=== PATIENT | male | born 1945 | race Caucasian/White ===

== ENCOUNTER 2022-01-01 06:56 | Emergency (ER) | payer MEDICARE, BC ==
[~2022-01-01] VITALS: Ht 182.9 cm; Wt 102.5 kg
--- NOTE | 2022-01-01 07:10 | NUR ---
Patient BIB [id number]. Per report, patient had a syncopial episode and hit his head. Patient c/o nausea without vomiting. Patient is A/Ox4, no SOB, not in distress.
[2022-01-01] MEDS ORDERED: IV NORMAL SALINE 500 ML BAG IV ONE (07:30)
--- NOTE | 2022-01-01 07:30 | NUR ---
Received pt in room 4A, pt is A/Ox4 and states he had a syncopal episode in the waiting room while waiting for a procedure for his kidney stone. Pt states he feels much better now and is pain free at this time.
--- NOTE | 2022-01-01 07:35 | NUR ---
Pt to CT via [facility] alexander noted.
[2022-01-01 08:03] LABS: HEMATOCRIT 38.3 % (36.7-47.1); MEAN CORPUSCULAR VOLUME 87.7 fL (73.0-96.2); PLATELET COUNT (AUTO) 264 K/uL (152-348)
[2022-01-01 08:22] LABS: CARBON DIOXIDE 26 mmol/L (21-32); CHLORIDE 101 mmol/L (98-107); CREATININE 1.8 mg/dL (0.6-1.3); GLUCOSE 164 mg/dL (74-106); POTASSIUM 4.8 mmol/L (3.5-5.1); UREA NITROGEN, BLOOD 25 mg/dL (7-18)
[2022-01-01 08:30] LABS: ALANINE AMINOTRANSFERASE 35 U/L (16-63); ALKALINE PHOSPHATASE 57 U/L (50-136); ASPARTATE AMINOTRANSFERASE 21 U/L (15-37); BILIRUBIN,DIRECT 0.2 mg/dL (0.0-0.2); BILIRUBIN,TOTAL 0.4 mg/dL (0.2-1.0); TOTAL PROTEIN, SERUM 7.3 g/dL (6.4-8.2)
--- NOTE | 2022-01-01 11:20 | NUR ---
Removed IV intact, site okay, bandaged. Gave pt d/c instructions, pt verbalized understanding.
--- NOTE | 2022-01-01 11:23 | NUR ---
Gave pt d/c instructions, pt verbalized understanding.
== END 2022-01-01 11:30 | disposition home or self-care (01) ==
LOC: ER 07:23
DX: R55 Syncope and collapse (principal); R11.0 Nausea; R94.31 Abnormal electrocardiogram [ECG] [EKG]; R79.89 Other specified abnormal findings of blood chemistry; Z86.73 Personal history of transient ischemic attack (TIA), and cerebral infarction without residual deficits; E11.9 Type 2 diabetes mellitus without complications; I25.2 Old myocardial infarction; Z95.5 Presence of coronary angioplasty implant and graft; I67.2 Cerebral atherosclerosis
CPT/HCPCS: 36415; 70450; 71045; 80048; 80076; 83880; 84484 ×2; 85025; 85730; 93005; 99285; J7040; A4663